=== PATIENT | female | born 1990 | race Caucasian/White ===

== ENCOUNTER 2022-10-18 07:29 | Outpatient (CLI) | payer OTHER, SELFPAY ==
[2022-10-18 09:02] LABS: Iron 100 ug/dL (37-170)
[2022-10-18 09:26] LABS: Percent Iron Saturation 26 % (20-50)
== END 2022-10-18 07:30 | disposition home or self-care (01) ==
LOC: ANHLAB 07:32
PROVIDERS: PCP Family Medicine; Visit Provider Nurse Practitioner Family
DX: R53.83 Other fatigue (principal)
CPT/HCPCS: 36415; 82607; 82728; 83540; 83550

== ENCOUNTER 2022-11-10 08:15 | Outpatient (CLI) | payer OTHER, SELFPAY ==
--- NOTE | 2022-11-15 15:29 | WPDHOMESLEEP ---
Sleep Study - Home Unattended Date of Study: 11/10/22 Ordering Provider: Tim Amanda APRN Interpreting Provider: Karrie Egan, DO Home Sleep Study Type: Watch PAT Height: 1.57 m Weight: 97.522 kg Body Mass Index: 39.3 Neck Circumference (inches): 15.25 [facility]: 12 Reason for Sleep Study Hypersomnia Sleep History The patient is a 32-year-old female with insomnia, depression, anxiety, GERD and binge eating disorder that had a sleep study ordered for evaluation of insomnia. The patient frequently awakens from sleep short of breath. She constantly awakens at night with heartburn, belching or cough. She constantly snores loud enough that others complain. She occasionally has trouble sleeping when she has a cold. She frequently wakes up gasping for air throughout the night. She frequently has breathing problems at night observed by herself or others. She frequently sweats excessively at night. She occasionally has heart palpitations or irregular heartbeats during the night. She constantly falls asleep during the day but never while driving. She denies sleep paralysis and cataplexy. She frequently has trouble at school or work due to sleepiness. She rarely experiences vivid dreamlike scenes upon awakening or falling asleep. She denies feeling afraid of going to sleep. She occasionally has nightmares and occasionally remembers her dreams. She occasionally has thoughts racing through her mind. She frequently feels sad, depressed and anxious. She rarely has muscular tension. She rarely notices parts of her body jerk. She rarely kicks during the night. She rarely has crawling and aching feelings in her legs and rarely has leg pain during the night. She denies grinding her teeth during sleep and rarely awakens with morning jaw pain. She is occasionally bothered by pain during the day but rarely awakened by pain during the night. She frequently wakes up feeling stiff in the morning. She frequently wakes up with sore or achy muscles. She rarely wakes up with pain in the neck, spine or other joints. She goes to bed between 7-8 a.m. on both weekdays and weekends. It takes her 30 minutes to fall asleep. She wakes up 2-4 times throughout the night for unknown reasons. When she awakens, she will lay in bed, read and listen to podcasts. it will take her 1-2 hours to fall back asleep. She wakes up at 4:30 a.m. p.m. on both weekdays and weekends. She typically gets 2-4 hours of sleep per day. She stays in bed for 5-10 minutes after waking up. She currently lives with her parents. She does not consume any caffeinated beverages within 2 hours of bedtime. She does not engage in physical exercise before bedtime. She will read watch television before falling asleep. She will take naps in the afternoon or the evening but they are not refreshing. She drinks 2-3 cups of caffeinated beverage per day. She drinks alcohol 1-2 times per week. She denies tobacco and recreational drug use. [facility] Past Medical History Medical History Chronic insomnia Depression with anxiety Family History Family History Father Hypertension Diabetes mellitus Social History Social History Social History: Single Smoking status: Never smoker Second hand tobacco smoke exposure: No Alcohol intake: current Drinks per week: 1 Substance use: never Substance use type: does not use Additional occupation/education comments: [employer] Gender identity (if verbalized by the patient): Female Medications Home Medications Medication Instructions Recorded Confirmed Type levonorgestrel 0.15 mg-ethinyl 1 tablet PO DAILY #84 tabs 08/05/22 10/13/22 Rx estradiol 0.03 mg tablet (Altavera (28)) trazodone 50 mg tablet 50 mg PO QHS PRN insomnia #90 tabs 08/05
[2022-11-15 15:38] VITALS: BMI 39.3
== END 2022-11-11 18:17 | disposition home or self-care (01) ==
LOC: ANHCSM 08:18
PROVIDERS: PCP Family Medicine; Visit Provider Nurse Practitioner Family
DX: G47.10 Hypersomnia, unspecified (principal)
CPT/HCPCS: 95800

== ENCOUNTER 2022-12-28 14:47 | Outpatient (CLI) | payer OTHER, SELFPAY ==
[2022-12-28 16:05] LABS: SARS-CoV-2 RNA PCR Negative
== END 2022-12-28 14:48 | disposition home or self-care (01) ==
LOC: ANHLAB 14:49
PROVIDERS: PCP Family Medicine; Visit Provider Nurse Practitioner Gerontology
DX: Z20.822 Contact with and (suspected) exposure to COVID-19 (principal)
CPT/HCPCS: U0003; U0005